=== PATIENT | male | born 2005 | race Caucasian/White ===

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

== ENCOUNTER 2024-11-26 06:39 | Emergency (ER) | payer MEDICAID ==
[~2024-11-26] VITALS: Ht 170.2 cm; Wt 68.0 kg
[2024-11-26 07:09] VITALS: O2SAT 98
[2024-11-26 07:39] VITALS: BP 146/80; PULSE 125; RESP 16; TEMP 98.3; O2SAT 98
[2024-11-26 08:36] LABS: CLARITY URINE CLOUDY (CLEAR); COLOR URINE DARK YELLOW (YELLOW); GLUCOSE URINE NEGATIVE (NEGATIVE); KETONES URINE 3+ (NEGATIVE); LEUKOCYTE ESTERASE URINE NEGATIVE (NEGATIVE); NITRITE URINE NEGATIVE (NEGATIVE); OCCULT BLOOD URINE NEGATIVE (NEGATIVE); PROTEIN URINE 2+ (NEGATIVE); SPECIFIC GRAVITY URINE 1.025 (1.005-1.030)
[2024-11-26 08:55] LABS: RBC URINE 0-2 /hpf (0-2)
[2024-11-26 08:56] LABS: BACTERIA URINE 3+; YEAST URINE NONE SEEN
[2024-11-26 09:02] LABS: HYALINE CASTS URINE TNTC /lpf
== END 2024-11-26 08:11 | disposition left against medical advice (07) ==
LOC: ER 06:39
DX: R11.2 Nausea with vomiting, unspecified (principal); I49.9 Cardiac arrhythmia, unspecified; Z53.21 Procedure and treatment not carried out due to patient leaving prior to being seen by health care provider
CPT/HCPCS: 81003; 93005